=== PATIENT | female | born 1980 | race African-American/Black ===

== ENCOUNTER 2018-10-23 13:59 | Outpatient (CLI) | payer SELFPAY ==
[~2018-10-23] VITALS: Ht 168.9 cm; Wt 69.4 kg
[2018-10-23] MEDS ORDERED: PREN-93 PO (14:18)
[2018-10-23 14:30] VITALS: Ht 168.9 cm; Wt 69.4 kg
[2018-10-23 14:34] VITALS: BP 94/63; PULSE 73; RESP 16
--- NOTE | 2018-10-23 17:17 | PN ---
Triage Information Date/Time Reason for visit: nausea Weeks of Gestation 32+ /Para 2/0 Diabetes: none Hypertention: none Objective Vital Signs Date Temp Pulse Resp B/P (MAP) Pulse Ox O2 O2 Flow FiO2 Time Delivery Rate 10/23/18 98.4 73 16 94/63 (73) 100 Room Air 14:34 Heart Rate: 140's Contractions: None Results/Medications Result Diagram: 10/23/18 1528 10/23/18 1528 Results 24 hrs Laboratory Tests Test 10/23/18 14:09 10/23/18 15:28 Urine Color YELLOW Urine Clarity CLEAR Urine pH 7.0 Urine Specific [place] 1.012 Urine Ketones NEGATIVE Urine Nitrite NEGATIVE Urine Bilirubin NEGATIVE Urine Urobilinogen 1+ H Urine Leukocyte Esterase 1+ H Urine Microscopic RBC 1 Urine Microscopic WBC 1 Urine Squamous Epithelial Cells FEW Urine Bacteria FEW A Urine Mucus FEW A Urine Hemoglobin NEGATIVE Urine Glucose NEGATIVE Urine Total Protein NEGATIVE White Blood Count 9.3 Red Blood Count 3.43 L Hemoglobin 11.0 L Hematocrit 33.1 L Mean Corpuscular Volume 96.5 Mean Corpuscular Hemoglobin 32.1 Mean Corpuscular Hemoglobin Concent 33.2 Red Cell Distribution Width 12.2 Platelet Count 246 Mean Platelet Volume 10.8 H Immature Granulocytes % 0.800 H Neutrophils % 76.3 Lymphocytes % 15.3 Monocytes % 6.8 Eosinophils % 0.4 Basophils % 0.4 Nucleated Red Blood Cells % 0.0 Immature Granulocytes # 0.070 H Neutrophils # 7.1 Lymphocytes # 1.4 Monocytes # 0.6 Eosinophils # 0.0 Basophils # 0.0 Nucleated Red Blood Cells # 0.0 Sodium Level 134 L Potassium Level 3.9 Chloride Level 103 Carbon Dioxide Level 23 Anion Gap 8 Blood Urea Nitrogen 3 L Creatinine 0.54 Est Glomerular Filtrat Rate mL/min > 60 Glucose Level 71 Calcium Level 9.3 Total Bilirubin 0.1 L Direct Bilirubin 0.00 Indirect Bilirubin 0.1 Aspartate Amino Transf (AST/SGOT) 25 Alanine Aminotransferase (ALT/SGPT) 12 L Alkaline Phosphatase 111 Total Protein 7.1 Albumin 3.6 Globulin 3.50 H Albumin/Globulin Ratio 1.02 Disposition: Discharge Assessment/Plan Labs reviewed Ultrasound reviewed She doesn't feel nauseous any more Follow up appointment for the patient given to her Questions answered Precautions discussed Follow up with provider KELLEN LILLY M.D. Oct 23, 2018 17:17
--- NOTE | 2018-10-23 17:43 | TRIAGE ---
OB Triage Datetime Report Generated by CPN: 10/23/2018 17:42 Datetime: 10/23/2018 16:30 Monitor Mode: External Quality: Mild Pattern: Normal: <= 5 Contractions in 10 Minutes Resting Tone [place]: Relaxed Heart Rate FHR Baseline Rate: 140 Monitor Mode: External US FHR Baseline Changes: No Baseline Change Variability: Moderate 6-25 bpm Accelerations: 15X15 Decelerations: None Category: Category I Pain Assessment Pain Scale: 2 Pain Presence: Intermittent Pain Type: Cramping Pain Location: Abdomen; Back Pain Goal: 0 Vaginal Exam Membrane Status: Intact Datetime: 10/23/2018 15:30 Labor Evaluation Frequency: x1 Monitor Mode: External Duration (sec)2399: 60 Quality: Mild Pattern: Normal: <= 5 Contractions in 10 Minutes Resting Tone [place]: Relaxed Heart Rate FHR Baseline Rate: 140 Monitor Mode: External US FHR Baseline Changes: No Baseline Change Variability: Moderate 6-25 bpm Accelerations: 10X10 Decelerations: None Category: Category I Pain Assessment Pain Scale: 7 Pain Presence: Intermittent Pain Type: Cramping Pain Location: Abdomen; Back Pain Goal: 0 Datetime: 10/23/2018 14:39 Labor Evaluation Frequency: UTERINE IRRITABILITY NOTED Resting Tone [place]: Relaxed Heart Rate FHR Baseline Rate: 140 Monitor Mode: External US Variability: Moderate 6-25 bpm Accelerations: 10X10 Decelerations: None Category: Category I Datetime: 10/23/2018 14:14 Assessment Type: Triage Maternal Assessment Level of Consciousness: Fully Conscious DTR's/Clonus: DTRs 2+; No Clonus Headache: Denies Blurred Vision: No Respiratory Effort: Unlabored; Regular Rhythm; Equal Expansion Breath Sounds, Left: Clear and Equal Breath Sounds, Right: Clear and Equal Nausea/Vomiting: Denies RUQ Epigastric Pain: Denies Lower Extremities Edema: None Degree: None Upper Extremities Edema: None Degree: None Facial Edema: None Fall Risk Assessment History of Falling: (0) No Secondary Diagnosis: (0) No Ambulatory Aid: (0) Bedrest/Nurse Assist IV Therapy: (0) No Gait: (0) Normal/Bedrest/Immobile Mental Status: (0) Oriented to Own Ability Fall Score: 0 Fall Risk Score Definition: No Risk: No action required Datetime: 10/23/2018 14:13 EGA: 32.2 Datetime: 10/23/2018 14:11 Time of Arrival: 10/23/2018 13:43 Arrived By: Ambulatory; Wheelchair Arrived From: Home Chief Complaint: PT. HERE FOR C/O N/V AND ABD. PAIN Movement: Present Contractions: Irregular Rupture of Membranes: Denies Vaginal Bleeding: None Vaginal Discharge: Present Recent Sexual Intercouse: Denies Abdominal Trauma: Not Applicable Patient Complaints: Cramping; Back Pain; Nausea; Vomiting; Urinary Frequency; Dizziness Time Provider Notified: 10/23/2018 14:10 Provider Notified: MAXX Initial Plan: CVL/EFW/BPP/CMP/CBC/UA Datetime: 10/23/2018 14:00 Monitor Mode: External Monitor Mode: External US
== END 2018-10-23 17:12 | disposition home or self-care (01) ==
LOC: L-D 13:59 → EDBD 13:59 → OBT 13:59
PROVIDERS: ATTEND Obstetrics & Gynecology
DX: O09.523 Supervision of elderly multigravida, third trimester (principal); Z3A.32 32 weeks gestation of pregnancy
CPT/HCPCS: 76815; 76817; 76818; 80053; 81001; 85025; G0463

== ENCOUNTER 2018-11-24 15:39 | Inpatient (IN) | payer SELFPAY ==
[~2018-11-24] VITALS: Ht 170.2 cm; Wt 69.8 kg
[~2018-11-24 15:39] MED LIST: PREN-93 PO
[2018-11-24] MEDS: LACTATED RINGER'S 1,000 ML IV SCH (20:27)
[2018-11-25 00:48] VITALS: Ht 170.2 cm; Wt 69.8 kg
[2018-11-25] MEDS: LACTATED RINGER'S 1,000 ML IV SCH (02:57)
--- NOTE | 2018-11-25 03:28 | NSTRPT ---
NST Information Datetime Report Generated by CPN: 11/25/2018 03:28 Datetime: 11/24/2018 14:04 NST Information EGA: 36.6 Test Number: 3 Time on Monitor: 11/24/2018 14:31 Time off Monitor: 11/24/2018 14:58 NST Duration (Min): 27 Reason for NST: Other Reason for NST Other: Rh negative, Rh Sensitized Test and Monitor Explained: Monitor Explained; Test Explained; Verbalized Understanding Pulse: 68 Resp: 18 SBP: 94 DBP: 55 Test Evaluation NST Interventions: None Patient States Movement: Present Contraction Frequency: NONE FHR Baseline : 130 Variability: Moderate 6-25bpm Accelerations: 15X15 Decelerations: None FHR Category: Category I NST Results: Reactive Comments: To u/s. GAIL 6.1cm. CEPHALIC. Pt states she feels wet starting at night on tuesday night . she states she sleeps without underwear so she noticed wetness between her legs also in the morning yesterday and today. Electronically Signed By E-Signature: with User ID: [id number] Datetime: 11/22/2018 13:45 NST Information EGA: 36.4 Time on Monitor: 11/22/2018 14:04 Time off Monitor: 11/22/2018 14:43 NST Duration (Min): 39 Reason for NST: Other Reason for NST Other: Rh Negative, Rh sensitized Test and Monitor Explained: Monitor Explained; Test Explained; Verbalized Understanding Pulse: 75 Resp: 18 SBP: 98 DBP: 54 Test Evaluation NST Interventions: Other NST Interventions Other: REPOSITION US Patient States Movement: Present Contraction Frequency: NONE FHR Baseline : 135 Variability: Moderate 6-25bpm Accelerations: 15X15 Decelerations: None FHR Category: Category I NST Results: Reactive Comments: pt to u/s GAIL 9.2 CM CEPHALIC PT INSTRUCTED TO DRINK 8-10 GLASSES OF WATER DAILY . STATES SHE HAS NOT BEEN DRINKING MUCH FLUIDS Electronically Signed By E-Signature: with User ID: [id number] Datetime: 11/17/2018 14:33 NST Information EGA: 35.6 NST Duration (Min): 29
[2018-11-25] MEDS ORDERED: ACETAMINOPHEN 500 MG TAB PO STA (10:02)
[2018-11-25] MEDS ORDERED: SALINE 0.65% 45 ML NAS SPRAY NASAL PRN (10:30)
--- NOTE | 2018-11-25 14:02 | HP ---
Date/Time of Note Date/Time of Note DATE: 11/25/18 TIME: 13:54 OB - History Hx of Present Free Text/Dictation 37-year-old female 2 para 0 AB 1 at 36 weeks and 6 days gestation sent in from antepartum testing unit for decreased amniotic fluid Patient has history of Rh sensitization Last Menstrual Period: Mar 11, 2018 Estimated Due Date: Dec 16, 2018 : 2 Para: 0 Therapeutic : 1 Care: Limited Care Ultrasounds: Other (Third trimester ultrasound) Obstetrical Complications: Other (Rh- sensitized titers were 121 which appears to be very low) Medical Complications: None Past Family/Social History * Past Medical, Surgical, Family and Obstetric Histories reviewed from chart. Blood Type: O- Rubella: immune RPR/VDRL: Negative GBS Status: Unknown HBsAG: Negative OB Admission Exam Physical Exam HEENT: WNL Heart: Rhythm Normal Lungs: Clear, Equal Abdomen: WNL Extremities: Normal Reflexes: Normal Cervical Dilatation: None Effacement: 0% Station: -3 Membranes: Intact Heart Rate: 140's Accelerations: Accelerations Present Decelerations: No Decelerations Varibility: Moderate Contractions on Admission: None Last 72 hours Lab Results CBC & BMP 11/24/18 17:38 OB Assessment/Plan Other Assessment: Decreased amniotic fluid at 36 weeks and 6 days Rh- sensitized ROM plus test was negative Other plan: Patient was admitted for IV hydration and reevaluation of amniotic fluid the following day SYL PASTOR MD Nov 25, 2018 14:02
--- NOTE | 2018-11-25 14:03 | DS ---
Date/Time of Note Date/Time of Note DATE: 11/25/18 TIME: 14:02 Obstetrical Discharge Record Final Diagnosis Final Diagnosis: Term delivered Other Final Diagnosis Decreased amniotic fluid which was read Complications Other (Rh- sensitized) Condition on Discharge Physical Assessment Voiding: Yes Bowel Movement: Yes Breast: Soft, non-tender, Filling Fundus: Other () Abdomen and Incision: Abdomen is gravid fundal height is 33 heart tones appeared reactive Episiotomy: Not applicable Calf Tenderness: No Patient Condition: Good SYL PASTOR MD Nov 25, 2018 14:03
--- NOTE | 2018-11-25 14:05 | QN ---
Documentation Comment 37-year-old female admitted admitted with decreased amniotic fluid Amniotic fluid index equals 8.9 cm. We will DC patient home with follow-up in antepartum testing SYL PASTOR MD Nov 25, 2018 14:05
--- NOTE | 2018-11-25 14:06 | PD.PPDC ---
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
== END 2018-11-25 14:35 | disposition home or self-care (01) | DRG 833 ==
LOC: OBT 15:39 → L-D 15:39 → OBT 18:40 → L-D 18:40
PROVIDERS: ADMIT Obstetrics & Gynecology; ATTEND Obstetrics & Gynecology
DX: O41.03X0 Oligohydramnios, third trimester, not applicable or unspecified (principal); Z3A.36 36 weeks gestation of pregnancy
CPT/HCPCS: 76818; 81003; 84112; 85025; 87086; G0463; J7120

== ENCOUNTER 2018-12-03 00:52 | Outpatient (CLI) | payer MEDICAID ==
[~2018-12-03] VITALS: Ht 170.2 cm; Wt 74.1 kg
[2018-12-03 01:25] VITALS: BP 98/60; PULSE 90; RESP 18; Ht 170.2 cm; Wt 74.1 kg
[2018-12-03] MEDS ORDERED: FERR134T PO (02:22)
[2018-12-03] MEDS ORDERED: PSYL0.4C2 PO (02:22)
--- NOTE | 2018-12-03 05:40 | TRIAGE ---
OB Triage Datetime Report Generated by CPN: 12/03/2018 05:40 Datetime: 12/03/2018 04:36 Stage of : OB Triage Datetime: 12/03/2018 03:49 Heart Rate FHR Baseline Rate: 135 Monitor Mode: External US Datetime: 12/03/2018 02:23 Stage of : OB Triage Monitor Mode: External Quality: Mild Pattern: Normal: <= 5 Contractions in 10 Minutes Resting Tone [place]: Relaxed Heart Rate FHR Baseline Rate: 140 Monitor Mode: External US FHR Baseline Changes: No Baseline Change Variability: Moderate 6-25 bpm Accelerations: 15X15 Decelerations: None Category: Category I Datetime: 12/03/2018 01:50 Stage of : OB Triage Datetime: 12/03/2018 01:46 Vaginal Exam Dilatation (cms): 1.0 Effacement (%): 30 Station: -3 Exam By: TChristiano HarperHernandez Datetime: 12/03/2018 01:23 Assessment Type: Triage Maternal Assessment Level of Consciousness: Fully Conscious DTR's/Clonus: DTRs 2+; No Clonus Headache: Denies Blurred Vision: No Respiratory Effort: Unlabored; Regular Rhythm; Equal Expansion Breath Sounds, Left: Clear and Equal Breath Sounds, Right: Clear and Equal Nausea/Vomiting: Denies RUQ Epigastric Pain: Denies Facial Edema: None Fall Risk Assessment History of Falling: (0) No Secondary Diagnosis: (0) No Ambulatory Aid: (0) Bedrest/Nurse Assist IV Therapy: (0) No Gait: (0) Normal/Bedrest/Immobile Mental Status: (0) Oriented to Own Ability Fall Score: 0 Fall Risk Score Definition: No Risk: No action required Datetime: 12/03/2018 01:21 Time of Arrival: 12/03/2018 00:46 EGA: 38.1 Arrived By: Ambulatory Arrived From: Home Chief Complaint: uc's since 2199, hemmorhoids Movement: Present Contractions: Irregular Rupture of Membranes: Denies Vaginal Discharge: Denies Recent Sexual Intercouse: Denies Abdominal Trauma: Not Applicable Patient Complaints: Contractions Time Provider Notified: 12/03/2018 01:50 Provider Notified: Dr Ricks Initial Plan: EFM, VE Datetime: 12/03/2018 01:03 Labor Evaluation Frequency: NONE Monitor Mode: External Quality: Mild Pattern: Normal: <= 5 Contractions in 10 Minutes Resting Tone [place]: Relaxed Heart Rate FHR Baseline Rate: 140 Monitor Mode: External US FHR Baseline Changes: No Baseline Change Variability: Moderate 6-25 bpm Accelerations: 15X15 Decelerations: None Category: Category I Datetime: 12/03/2018 00:59 EGA: 36.6 Datetime: 11/25/2018 14:00 Labor Evaluation Frequency: 0 Monitor Mode: External Pattern: Normal: <= 5 Contractions in 10 Minutes Resting Tone [place]: Relaxed Heart Rate FHR Baseline Rate: 135 Monitor Mode: External US Variability: Moderate 6-25 bpm Accelerations: 15X15 Decelerations: None Category: Category I Datetime: 11/25/2018 13:13 Pain Assessment Pain Scale: 0 Pain Presence: None/Denies Pain Type: N/A Pain Goal: 0 Pain Assessment Comments: DENIES ANY FURTHER PAIN Datetime: 11/25/2018 13:00 Labor Evaluation Frequency: 0 Monitor Mode: External Pattern: Normal: <= 5 Contractions in 10 Minutes Resting Tone [place]: Relaxed Heart Rate FHR Baseline Rate: 135 Monitor Mode: External US Variability: Moderate 6-25 bpm Accelerations: 15X15 Decelerations: None Category: Category I Datetime: 11/25/2018 12:00 Labor Evaluation Frequency: 0 Monitor Mode: External Pattern: Normal: <= 5 Contractions in 10 Minutes Resting Tone [place]: Relaxed Heart Rate FHR Baseline Rate: 135 Monitor Mode: External US Variability: Moderate 6-25 bpm Accelerations: 15X15 Decelerations: None Category: Category I Datetime: 11/25/2018 11:24 Pain Assessment Pain Scale: 4 Pain Presence: Intermittent Pain Type: Ache Pain Location: Head Pain Goal: 0 Pain Relief Measures: Comfort Measures Pain Assessment Comments: states pain is tolerable after tylenol Datetime: 11/25/2018 11:00 Labor Evaluation Frequency: 0 Monitor Mode: External Pattern: Normal: <= 5 Contractions in 10 Minutes Resting Tone [place]: Relaxed Heart Rate FHR Baseline Rate: 135 Monitor Mode: External US Variability: Moderate 6-25 bpm Accelerations: 15X15 Decelerations: None Category: Category I Datetime: 11/25/2018 10:00 Labor Evaluation Frequency: x2 Monitor Mode: External Duration (sec)2399: 50 Quality: Mild Pattern: Normal: <= 5 Contractions in 10 Minutes Resting Tone [place]: Relaxed Contraction Comments: denies feeling Heart Rate FHR Baseline Rate: 130 Monitor Mode: External US Variability: Moderate 6-25 bpm Accelerations: 15X15 Decelerations: None Category: Category I Datetime: 11/25/2018 09:58 Pain Assessment Pain Scale: 6 Pain Presence: Constant Pain Type: Ache Pain Location: Head Pain Goal: 0 Pain Relief Measures: Comfort Measures Pain Assessment Comments: pt states she feels a h/a now with nasal congestion Datetime: 11/25/2018 09:00 Labor Evaluation Frequency: 0 Monitor Mode: External Pattern: Normal: <= 5 Contractions in 10 Minutes Resting Tone [place]: Relaxed Contraction Comments: denies any ucs Heart Rate FHR Baseline Rate: 130 Monitor Mode: External US Variability: Moderate 6-25 bpm Comments: broken tracing Datetime: 11/25/2018 08:55 Assessment Type: Ongoing Assessment Maternal Assessment Level of Consciousness: Fully Conscious DTR's/Clonus: DTRs 2+; No Clonus Headache: Denies Blurred Vision: No Respiratory Effort: Unlabored; Regular Rhythm; Equal Expansion Breath Sounds, Left: Clear and Equal Breath Sounds, Right: Clear and Equal Nausea/Vomiting: Denies RUQ Epigastric Pain: Denies Lower Extremities Edema: None Degree: None Upper Extremities Edema: None Degree: None Facial Edema: None Fall Risk Assessment History of Falling: (0) No Secondary Diagnosis: (0) No Ambulatory Aid: (0) Bedrest/Nurse Assist IV Therapy: (0) No Gait: (0) Normal/Bedrest/Immobile Mental Status: (0) Oriented to Own Ability Fall Score: 0 Fall Risk Score Definition: No Risk: No action required Datetime: 11/25/2018 08:22 Comments: loss of contact, pt sitting up for breakfast, will adjust after Datetime: 11/25/2018 08:00 Labor Evaluation Frequency: 0 Monitor Mode: External Pattern: Normal: <= 5 Contractions in 10 Minutes Resting Tone [place]: Relaxed Heart Rate FHR Baseline Rate: 130 Monitor Mode: External US Variability: Moderate 6-25 bpm Accelerations: 15X15 Decelerations: None Category: Category I Datetime: 11/25/2018 07:00 Labor Evaluation Frequency: 1/HR Monitor Mode: External Duration (sec)2399: 50 Quality: Mild Pattern: Normal: <= 5 Contractions in 10 Minutes Resting Tone [place]: Relaxed Heart Rate FHR Baseline Rate: 135 Monitor Mode: External US FHR Baseline Changes: No Baseline Change Variability: Moderate 6-25 bpm Accelerations: 15X15 Decelerations: None Category: Category I Datetime: 11/25/2018 06:01 Labor Evaluation Frequency: NONE Monitor Mode: External Pattern: Normal: <= 5 Contractions in 10 Minutes Resting Tone [place]: Relaxed Heart Rate FHR Baseline Rate: 130 Monitor Mode: External US FHR Baseline Changes: No Baseline Change Variability: Moderate 6-25 bpm Accelerations: 15X15 Decelerations: None Category: Category I Datetime: 11/25/2018 05:00 Labor Evaluation Frequency: NONE Monitor Mode: External Pattern: Normal: <= 5 Contractions in 10 Minutes Resting Tone [place]: Relaxed Heart Rate FHR Baseline Rate: 130 Monitor Mode: External US FHR Baseline Changes: No Baseline Change Variability: Moderate 6-25 bpm Accelerations: 15X15 Decelerations: None Category: Category I Datetime: 11/25/2018 04:00 Labor Evaluation Frequency: NONE Monitor Mode: External Pattern: Normal: <= 5 Contractions in 10 Minutes Resting Tone [place]: Relaxed Heart Rate FHR Baseline Rate: 135 Monitor Mode: External US FHR Baseline Changes: No Baseline Change Variability: Moderate 6-25 bpm Accelerations: 15X15 Decelerations: None Category: Category I Datetime: 11/25/2018 03:00 Labor Evaluation Frequency: NONE Monitor Mode: External Pattern: Normal: <= 5 Contractions in 10 Minutes Resting Tone [place]: Relaxed Heart Rate FHR Baseline Rate: 135 Monitor Mode: External US FHR Baseline Changes: No Baseline Change Variability: Moderate 6-25 bpm Accelerations: 15X15 Decelerations: None Category: Category I Datetime: 11/25/2018 02:00 Labor Evaluation Frequency: 1/HR Monitor Mode: External Quality: Mild Pattern: Normal: <= 5 Contractions in 10 Minutes Resting Tone [place]: Relaxed Heart Rate FHR Baseline Rate: 135 Monitor Mode: External US FHR Baseline Changes: No Baseline Change Variability: Moderate 6-25 bpm Accelerations: 15X15 Decelerations: None Category: Category I Datetime: 11/25/2018 01:00 Labor Evaluation Frequency: NONE Monitor Mode: External Pattern: Normal: <= 5 Contractions in 10 Minutes Resting Tone [place]: Relaxed Heart Rate FHR Baseline Rate: 135 Monitor Mode: External US FHR Baseline Changes: No Baseline Change Variability: Moderate 6-25 bpm Accelerations: 15X15 Decelerations: None Category: Category I Datetime: 11/25/2018 00:00 Labor Evaluation Frequency: NONE Monitor Mode: External Pattern: Normal: <= 5 Contractions in 10 Minutes Resting Tone [place]: Relaxed Heart Rate FHR Baseline Rate: 135 Monitor Mode: External US FHR Baseline Changes: No Baseline Change Variability: Moderate 6-25 bpm Accelerations: 15X15 Decelerations: None Category: Category I Datetime: 11/24/2018 23:00 Labor Evaluation Frequency: NONE Monitor Mode: External Pattern: Normal: <= 5 Contractions in 10 Minutes Resting Tone [place]: Relaxed Heart Rate FHR Baseline Rate: 135 Monitor Mode: External US FHR Baseline Changes: No Baseline Change Variability: Moderate 6-25 bpm Accelerations: 15X15 Decelerations: None Category: Category I Datetime: 11/24/2018 22:19 Assessment Type: Admission Assessment Maternal Assessment Level of Consciousness: Fully Conscious DTR's/Clonus: DTRs 2+; No Clonus Headache: Denies Blurred Vision: No Respiratory Effort: Unlabored; Regular Rhythm; Equal Expansion Breath Sounds, Left: Clear and Equal Breath Sounds, Right: Clear and Equal Nausea/Vomiting: Denies RUQ Epigastric Pain: Denies Lower Extremities Edema: None Degree: None Upper Extremities Edema: None Degree: None Facial Edema: None Fall Risk Assessment History of Falling: (0) No Secondary Diagnosis: (0) No Ambulatory Aid: (0) Bedrest/Nurse Assist Gait: (0) Normal/Bedrest/Immobile Mental Status: (0) Oriented to Own Ability Datetime: 11/24/2018 22:00 Labor Evaluation Frequency: NONE Monitor Mode: External Pattern: Normal: <= 5 Contractions in 10 Minutes Resting Tone [place]: Relaxed Heart Rate FHR Baseline Rate: 140 Monitor Mode: External US FHR Baseline Changes: No Baseline Change Variability: Moderate 6-25 bpm Accelerations: 15X15 Decelerations: None Category: Category I Datetime: 11/24/2018 21:00 Labor Evaluation Frequency: NONE Monitor Mode: External Pattern: Normal: <= 5 Contractions in 10 Minutes Resting Tone [place]: Relaxed Heart Rate FHR Baseline Rate: 140 Monitor Mode: External US FHR Baseline Changes: No Baseline Change Variability: Minimal - Undetectable to <=5 bpm Accelerations: 15X15 Decelerations: None Category: Category II Pain Presence: None/Denies Datetime: 11/24/2018 20:10 Labor Evaluation Frequency: NONE Monitor Mode: External Pattern: Normal: <= 5 Contractions in 10 Minutes Resting Tone [place]: Relaxed Heart Rate FHR Baseline Rate: 135 Monitor Mode: External US FHR Baseline Changes: No Baseline Change Variability: Moderate 6-25 bpm Accelerations: 15X15 Decelerations: None Category: Category I Datetime: 11/24/2018 19:35 Labor Evaluation Frequency: NONE Monitor Mode: External Pattern: Normal: <= 5 Contractions in 10 Minutes Resting Tone [place]: Relaxed Heart Rate FHR Baseline Rate: 135 Monitor Mode: External US FHR Baseline Changes: No Baseline Change Variability: Moderate 6-25 bpm Accelerations: 15X15 Decelerations: None Category: Category I Datetime: 11/24/2018 18:39 Stage of : OB Triage Datetime: 11/24/2018 17:59 Labor Evaluation Frequency: 0 Monitor Mode: External Pattern: Normal: <= 5 Contractions in 10 Minutes Resting Tone [place]: Relaxed Heart Rate FHR Baseline Rate: 135 Monitor Mode: External US Variability: Moderate 6-25 bpm Accelerations: 10X10 Decelerations: None Category: Category I Pain Assessment Pain Scale: 0 Pain Presence: None/Denies Pain Type: N/A Pain Goal: 3 Pain Relief Measures: Comfort Measures Datetime: 11/24/2018 17:18 Stage of : OB Triage Datetime: 11/24/2018 17:04 Stage of : OB Triage Assessment Type: Triage Maternal Assessment Level of Consciousness: Fully Conscious DTR's/Clonus: DTRs 2+; No Clonus Headache: Denies Blurred Vision: No Respiratory Effort: Unlabored; Regular Rhythm; Equal Expansion Breath Sounds, Left: Clear and Equal Breath Sounds, Right: Clear and Equal Nausea/Vomiting: Denies RUQ Epigastric Pain: Denies Facial Edema: None Temperature Route: Axillary Fall Risk Assessment History of Falling: (0) No Secondary Diagnosis: (0) No Ambulatory Aid: (0) Bedrest/Nurse Assist IV Therapy: (0) No Gait: (0) Normal/Bedrest/Immobile Mental Status: (0) Oriented to Own Ability Fall Score: 0 Fall Risk Score Definition: No Risk: No action required Labor Evaluation Frequency: 0 Monitor Mode: External Pattern: Normal: <= 5 Contractions in 10 Minutes Resting Tone [place]: Relaxed Heart Rate FHR Baseline Rate: 145 Monitor Mode: External US Variability: Moderate 6-25 bpm Accelerations: None Decelerations: None Category: Category I Pain Assessment Pain Scale: 5 Pain Presence: Intermittent Pain Type: Cramping Pain Location: Abdomen Pain Goal: 3 Pain Relief Measures: Comfort Measures Vaginal Exam Dilatation (cms): 0.5 Effacement (%): 60 Station: -2 Exam By: Janice MONROE Nitrazine: Negative Datetime: 11/24/2018 14:20 Time of Arrival: 11/24/2018 15:26 EGA: 36.6 Arrived By: Ambulatory Arrived From: Other Unit in Hospital Chief Complaint: REFERRED FROM T TO CHECK FOR LEAKING OF FLUID, WAS SEEN IN NST 3 DAYS AGO GAIL WA S 9.2 AND TODAY 6.1, DENIES BLEEDING OR UC'S Movement: Present Contractions: Occasional Rupture of Membranes: Unsure Vaginal Bleeding: None Vaginal Discharge: Present Recent Sexual Intercouse: Denies Abdominal Trauma: Not Applicable Initial Plan: MONITOR, ROM PLUS, NITRAZINE Datetime: 10/23/2018 14:14 Fall Score: 0 Fall Risk Score Definition: No Risk: No action required Datetime: 10/23/2018 14:13 EGA: 32.2
--- NOTE | 2018-12-03 06:48 | PN ---
Triage Information Date/Time Reason for visit: Hemorrhoids and constipation Weeks of Gestation Patient is a 38-year-old 1 para 0 at 38 weeks and 1 day of gestation with estimated date of delivery 2018 Patient presents with chief complaint of hemorrhoids and constipation She reports positive movement, denies uterine contraction, denies vaginal bleeding or leaking fluid /Para 1 para 0 Objective Vital Signs Date Temp Pulse Resp B/P (MAP) Pulse Ox O2 O2 Flow FiO2 Time Delivery Rate 12/03/18 98.2 90 18 98/60 (73) Room Air 01:25 Heart Rate: 140's Heart Rate Comments heart rate tracing category 1 Contractions: None Results/Medications Results 24 hrs H&H on November 24 10.3/31.3 Imaging Results PROCEDURE: US OB CLINICAL INDICATION: Contractions. labor. Assess weight. TECHNIQUE: Multiple transabdominal sonographic images of the pelvis and gravid uterus were obtained. The images were reviewed on a PACS workstation. COMPARISON: Current biophysical profile ultrasound, dictated separately; 11/25/2018 ultrasound OB biophysical profile with GAIL. FINDINGS: Cervix: Not visualized Gestation: Single viable intrauterine gestation. Cardiac activity: 136 beats per minute. Presentation: Cephalic Placenta: Location: Posterior fundal Appearance: No previa or abruption. Amniotic Fluid: GAIL = 12.8 cm Measurements: BPD = 9.34 cm, 38 weeks 0 days HC = 33.32 cm, 38 weeks to 0 days AC = 33.92 cm, 37 weeks 6 days FL = 7.36 cm, 37 weeks 5 days Gestational Age: AUA estimated gestational age: 37 weeks 6 days LMP estimated gestational age: 38 weeks 1 days AUA estimated date of delivery: 12/18/2018 The EFW = 3320 g +/- 498g (7lb 5oz +/-1lb 2oz), 55.2 %ile based on Hadlock age. Structures: Not assessed IMPRESSION: 1. Single viable intrauterine gestation of 37 weeks 6 days by ultrasound criteria, yielding estimated delivery date of 12/18/2018. 2. Estimated weight = 3320 g (55.2 %ile), as above RPTAT: [facility] Physician Kay Date Time Electronically viewed and signed by Physician Kay on 12/03/2018 03:29 RF/ CC: PROMISE TORRES MD [phone] PROCEDURE: US OB biophysical profile. CLINICAL INDICATION: Contraction. labor. TECHNIQUE: Multiple sonographic images of the pelvis were obtained. The images were reviewed on a PACS workstation. COMPARISON: US 12/03/2018; US PELVIS 11/25/2018 FINDINGS: There is a single live intrauterine gestation. There is a normal amount of amniotic fluid with an GAIL = 12.8 cm, including MVP= 4.0 cm. Cardiac activity is present with 135 beats per minute. There is a cephalic presentation. The placenta is posterior fundal. Biophysical profile reported as: movement 2/2 tone 2/2. breathing 2/2 GAIL 2/2 Total 8/8 IMPRESSION: Normal biophysical profile reported as 88 with GAIL = 12.8cm RPTAT: [facility]SA[facility] Physician Kay Date Time Electronically viewed and signed by Physician Kay on 12/03/2018 03:23 RF/ CC: PROMISE TORRES MD [phone] Disposition: Discharge Assessment/Plan Prescription for Anusol cream was given Patient was counseled regarding fiber and fluid intake She was instructed to follow-up with her own CAN TENDER in 1-2 days PROMISE TORRES MD Dec 03, 2018 06:48
--- NOTE | 2018-12-03 20:23 | NSTRPT ---
NST Information Datetime Report Generated by CPN: 12/03/2018 20:22 Datetime: 12/03/2018 00:59 NST Information EGA: 37.6 Datetime: 12/01/2018 10:45 NST Information EGA: 37.6 Test Number: 5 Time on Monitor: 12/01/2018 12:03 Time off Monitor: 12/01/2018 12:39 NST Duration (Min): 36 Reason for NST: Other Reason for NST Other: Rh negative, Rh sensitized Test and Monitor Explained: Monitor Explained; Test Explained; Verbalized Understanding Pulse: 86 Resp: 18 SBP: 104 DBP: 66 Patient States Movement: Present Contraction Frequency: none FHR Baseline : 140 Variability: Moderate 6-25bpm Accelerations: 15X15 Decelerations: None FHR Category: Category I NST Results: Reactive Comments: PT TO U/S GAIL 11.8 CM CEPHALIC Electronically Signed By E-Signature: with User ID: [id number] Datetime: 11/28/2018 13:25 NST Information EGA: 37.3 Test Number: 4 Time on Monitor: 11/28/2018 13:53 Time off Monitor: 11/28/2018 14:22 NST Duration (Min): 29 Reason for NST: Other Reason for NST Other: Rh negative, Rh sensitized Test and Monitor Explained: Monitor Explained; Test Explained; Verbalized Understanding Pulse: 73 Resp: 18 SBP: 97 DBP: 59 Test Evaluation NST Interventions: None Patient States Movement: Present Contraction Frequency: OCCASSIONAL/40-60/mild/pain level 0 FHR Baseline : 135 Variability: Moderate 6-25bpm Accelerations: 15X15 Decelerations: None FHR Category: Category I NST Results: Reactive Comments: To u/s GAIL 12.0 CM CEPHALIC Electronically Signed By E-Signature: with User ID: [id number] Datetime: 11/24/2018 14:04 NST Information EGA: 36.6 NST Duration (Min): 27 Datetime: 11/22/2018 13:45 NST Information EGA: 36.4 NST Duration (Min): 39 Datetime: 11/17/2018 14:33 NST Information EGA: 35.6 NST Duration (Min): 29
== END 2018-12-03 04:50 | disposition home or self-care (01) ==
LOC: OBT 00:52 → L-D 00:57 → OBT 04:50
PROVIDERS: ATTEND Obstetrics & Gynecology
DX: O22.43 Hemorrhoids in pregnancy, third trimester (principal); Z3A.38 38 weeks gestation of pregnancy
CPT/HCPCS: 76815; 76818; Z7500; G0463

== ENCOUNTER 2018-12-04 09:19 | Inpatient (IN) | payer MEDICAID ==
[~2018-12-04] VITALS: Ht 170.2 cm; Wt 73.5 kg
[~2018-12-04 09:19] MED LIST changes: +FERR134T PO; +PSYL0.4C2 PO
[2018-12-04 09:28] VITALS: Ht 170.2 cm; Wt 73.5 kg
[2018-12-04] MEDS ORDERED: LACTATED RINGER'S 1,000 ML IV ONE (10:00)
[2018-12-04] MEDS ORDERED: morphine 10 MG INJ IM ONE ×2 (10:30→20:30)
[2018-12-04] MEDS ORDERED: LACTATED RINGER'S 1,000 ML IV SCH ×2 (15:00→17:21)
--- NOTE | 2018-12-04 16:54 | HP ---
Date/Time of Note Date/Time of Note DATE: 12/04/18 TIME: 16:50 OB - History Hx of Present Free Text/Dictation 38-year-old female 2 para 0 AB 1 at 38 weeks gestation admitted complaining of uterine contractions started a few hours prior to admission Denies rupture of membrane no vaginal bleeding Chief Complaint: Labor contractions Last Menstrual Period: Mar 11, 2018 Estimated Due Date: Dec 16, 2018 : 2 Para: 0 Therapeutic : 1 Care: Limited Care Past Family/Social History * Past Medical, Surgical, Family and Obstetric Histories reviewed from chart. Blood Type: O- (Patient has positive anti-D immunization) Rubella: immune RPR/VDRL: Negative GBS Status: Unknown HBsAG: Negative OB Admission Exam Physical Exam HEENT: WNL Heart: Rhythm Normal Lungs: Clear, Equal Abdomen: WNL Extremities: Normal Reflexes: Normal Cervical Dilatation: 1cm Effacement: 25% Station: -3 Membranes: Intact Heart Rate: 140's Accelerations: Accelerations Present Decelerations: No Decelerations Varibility: Marked Contractions on Admission: 6-10 Minutes Apart Date/Time Contractions Began: 12/04/2018 in a.m. Frequency of Contractions: Every 5-10 minutes Duration: Over 60 seconds Intensity: Firm (Patient complaining of strong uterine contraction which has caused her serious discomfort) OB Assessment/Plan Other Assessment: Term gestation in labor contractions Other plan: Pain medication was offered to patient which was refused We will continue to observe in-house until contractions subside or patient falls in labor SYL PASTOR MD Dec 04, 2018 16:54
[2018-12-04] MEDS ORDERED: ACETAMINOPHEN 325 MG TAB PO PRN (17:30)
[2018-12-04] MEDS ORDERED: AL HYDROX/MG HYDROX/SIMETH 30 ML CUP PO PRN (17:30)
--- NOTE | 2018-12-04 17:57 | TRIAGE ---
OB Triage Datetime Report Generated by CPN: 12/04/2018 17:57 Datetime: 12/04/2018 17:00 Frequency: OCC Monitor Mode: External Quality: Mild Pattern: Normal: <= 5 Contractions in 10 Minutes Resting Tone [place]: Relaxed FHR Baseline Rate: 135 Monitor Mode: External US FHR Baseline Changes: No Baseline Change Variability: Moderate 6-25 bpm Accelerations: 15X15 Decelerations: None Category: Category I Pain Scale: 8 Pain Goal: 0 Datetime: 12/04/2018 16:00 Frequency: 7-10 Monitor Mode: External Duration (sec)2399: 50-90 Quality: Mild Pattern: Normal: <= 5 Contractions in 10 Minutes Resting Tone [place]: Relaxed FHR Baseline Rate: 135 Monitor Mode: External US FHR Baseline Changes: No Baseline Change Variability: Moderate 6-25 bpm Accelerations: 15X15 Decelerations: None Category: Category I Pain Scale: 8 Pain Presence: Intermittent Pain Type: Contraction Pain Location: Abdomen; Back Pain Goal: 0 Pain Relief Measures: Comfort Measures Datetime: 12/04/2018 15:00 Frequency: 5-10 Monitor Mode: External Duration (sec)2399: 50-100 Quality: Mild Pattern: Normal: <= 5 Contractions in 10 Minutes Resting Tone [place]: Relaxed FHR Baseline Rate: 150 Monitor Mode: External US FHR Baseline Changes: No Baseline Change Variability: Moderate 6-25 bpm Accelerations: 15X15 Decelerations: None Category: Category I Pain Scale: 8 Pain Presence: Intermittent Pain Type: Contraction Pain Location: Abdomen; Back Pain Goal: 3 Pain Relief Measures: Comfort Measures Datetime: 12/04/2018 14:00 Frequency: 8-10 Monitor Mode: External Duration (sec)2399: 50-90 Quality: Moderate Pattern: Normal: <= 5 Contractions in 10 Minutes Resting Tone [place]: Relaxed FHR Baseline Rate: 135 Monitor Mode: External US FHR Baseline Changes: No Baseline Change Variability: Moderate 6-25 bpm Accelerations: 15X15 Decelerations: None Category: Category I Pain Scale: 8 Pain Presence: Intermittent Pain Type: Contraction Pain Location: Abdomen; Back Pain Goal: 5 Pain Relief Measures: Comfort Measures Datetime: 12/04/2018 13:00 Frequency: 8-10 Monitor Mode: External Duration (sec)2399: 60-80 Quality: Mild Pattern: Normal: <= 5 Contractions in 10 Minutes Resting Tone [place]: Relaxed FHR Baseline Rate: 135 Monitor Mode: External US FHR Baseline Changes: No Baseline Change Variability: Moderate 6-25 bpm Accelerations: 15X15 Decelerations: None Category: Category I Pain Scale: 8 Pain Presence: Intermittent Pain Type: Contraction Pain Location: Abdomen; Back Pain Goal: 4 Pain Relief Measures: Comfort Measures Datetime: 12/04/2018 12:00 Frequency: 7-10 Monitor Mode: External Duration (sec)2399: 60-80 Quality: Mild Pattern: Normal: <= 5 Contractions in 10 Minutes Resting Tone [place]: Relaxed FHR Baseline Rate: 140 Monitor Mode: External US FHR Baseline Changes: No Baseline Change Variability: Moderate 6-25 bpm Accelerations: 15X15 Decelerations: None Category: Category I Pain Scale: 8 Pain Presence: Intermittent Pain Type: Contraction Pain Location: Abdomen; Back Pain Goal: 5 Pain Relief Measures: Comfort Measures Datetime: 12/04/2018 11:37 Dilatation (cms): 1.0 Effacement (%): 60 Station: -2 Exam By: TM Datetime: 12/04/2018 11:00 Frequency: 7-10 Monitor Mode: External Duration (sec)2398: 6080 Quality: Mild Pattern: Normal: <= 5 Contractions in 10 Minutes Resting Tone [place]: Relaxed FHR Baseline Rate: 135 Monitor Mode: External US FHR Baseline Changes: No Baseline Change Variability: Moderate 6-25 bpm Accelerations: 15X15 Decelerations: None Category: Category I Pain Scale: 8 Pain Presence: Intermittent Pain Type: Contraction Pain Location: Abdomen; Back Pain Goal: 5 Pain Relief Measures: Comfort Measures Datetime: 12/04/2018 10:00 Frequency: 3-6 Monitor Mode: External Duration (sec)2399: 50-80 Quality: Mild Pattern: Normal: <= 5 Contractions in 10 Minutes Resting Tone [place]: Relaxed FHR Baseline Rate: 135 Monitor Mode: External US FHR Baseline Changes: No Baseline Change Variability: Minimal - Undetectable to <=5 bpm Accelerations: 15X15 Decelerations: None Category: Category II Pain Scale: 8 Pain Presence: Intermittent Pain Type: Contraction Pain Location: Abdomen; Back Pain Goal: 4 Pain Relief Measures: Comfort Measures Datetime: 12/04/2018 09:30 Assessment Type: Triage Level of Consciousness: Fully Conscious DTR's/Clonus: DTRs 2+; No Clonus Headache: Denies Blurred Vision: No Respiratory Effort: Unlabored; Regular Rhythm; Equal Expansion Breath Sounds, Left: Clear and Equal Breath Sounds, Right: Clear and Equal Nausea/Vomiting: Denies RUQ Epigastric Pain: Denies Lower Extremities Edema: None Degree: None Upper Extremities Edema: None Degree: None Facial Edema: None History of Falling: (0) No Secondary Diagnosis: (0) No Ambulatory Aid: (0) Bedrest/Nurse Assist IV Therapy: (0) No Gait: (0) Normal/Bedrest/Immobile Mental Status: (0) Oriented to Own Ability Fall Score: 0 Fall Risk Score Definition: No Risk: No action required Datetime: 12/04/2018 09:24 Dilatation (cms): 1.0 Effacement (%): 60 Station: -2 Exam By: TM Membrane Status: Intact Datetime: 12/04/2018 09:20 Time of Arrival: 12/04/2018 09:17 EGA: 38.2 Arrived By: Ambulatory Arrived From: Home Chief Complaint: UC since 0400 pain 8/10 Movement: Present Contractions: Regular Rupture of Membranes: Denies Vaginal Bleeding: Normal Show Vaginal Discharge: Denies Recent Sexual Intercouse: Denies Abdominal Trauma: Not Applicable Patient Complaints: Contractions Time Provider Notified: 12/04/2018 09:35 Provider Notified: Andrew Initial Plan: NST, VE
[2018-12-04] MEDS ORDERED: LIDOCAINE 1% (MPF) 30 ML INJ INJ PRN (23:30)
[2018-12-04] MEDS ORDERED: CARBOPROST 250 MCG INJ IM PRN (23:30)
[2018-12-04] MEDS ORDERED: OXYTOCIN 30 UNITS/LR 500 ML IV PRN (23:30)
[2018-12-04] MEDS ORDERED: BUTORPHANOL 2 MG INJ IV PRN (23:30)
[2018-12-04] MEDS ORDERED: AMPICILLIN 2 GM/NS (PMX) 100 ML IV ONE (23:30)
[2018-12-04] MEDS ORDERED: MISOPROSTOL 200 MCG TAB PR PRN (23:30)
[2018-12-04] MEDS ORDERED: METHYLERGONOVINE 0.2 MG INJ IM PRN (23:30)
[2018-12-04] MEDS ORDERED: OXYTOCIN 30 UNITS/LR 500 ML IV SCH ×2 (23:30)
[2018-12-04] MEDS: LACTATED RINGER'S 1,000 ML IV SCH (23:47)
[2018-12-05] MEDS: LACTATED RINGER'S 1,000 ML IV SCH ×4 (00:56→22:05)
[2018-12-05] MEDS ORDERED: FENTAnyl 2MCG/ML-ROPIV 0.2% 100 ML ONE (01:02)
--- NOTE | 2018-12-05 01:34 | PREAC ---
Date/Time of Note Date/Time of Note DATE: 12/05/18 TIME: :33 Anesthesia Eval and Record Evaluation Time Pre-Procedure Interview DATE: 12/05/18 TIME: :33 Age 38 Sex female NPO: 8 hrs Preoperative diagnosis Labor Pain Planned procedure Labor Epidural Past Medical History Past Medical History: Includes Heme: Anemia : : (1), Para: (0), Gestational age: (38) Surgery & Anesthesia Issues No known issue Meds Anticoagulation: No Beta Dionisio within 24 hr: No Reason Beta Dionisio not given: Pt. not on B-Dionisio Reported Medications Psyllium Husk (Metamucil) 0.4 Gm Capsule, 0.4 GM PO DAILY, CAP 12/03/18 Ferrous Sulfate (Iron) 134 Mg Tablet, 134 MG PO DAILY, TAB 12/03/18 Vit No.124/Iron/FA ( Vitamin Tablet) 1 Each Tablet, 1 EACH PO DAILY, TAB 10/23/18 Current Medications Acetaminophen (Tylenol Tab) 650 mg Q4H PRN PO .PAIN OR TEMP; Start 12/04/18 at 17:30 Lactated Ringer's 1,000 ml @ 125 mls/hr Q8H IV Last administered on 12/05/18at 00:56; Admin Dose 125 MLS/HR; Start 12/04/18 at 23:10 Butorphanol Tartrate (Stadol) 2 mg Q2H PRN IV .PAIN; Start 12/04/18 at 23:30 Lidocaine (Xylocaine 1% (Mpf)) 30 ml ONCE PRN INJ .EPISIOTOMY; Start 12/04/18 at 23:30 Oxytocin/Lactated Ringer's 500 ml @ 500 mls/hr ONCE POST IV ; Start 12/04/18 at 23:30 Oxytocin/Lactated Ringer's 500 ml @ 125 mls/hr POST IV ; Start 12/04/18 at 23:30 Oxytocin/Lactated Ringer's 500 ml @ 0 mls/hr ONCE PRN IV .VAGINAL BLEEDING; Start 12/04/18 at 23:30 Methylergonovine Maleate (Methergine) 0.2 mg ONCE PRN IM .VAGINAL BLEEDING; Start 12/04/18 at 23:30 Carboprost Tromethamine (Hemabate) 250 mcg ONCE PRN IM .VAGINAL BLEEDING; Start 12/04/18 at 23:30 Misoprostol (Cytotec) 1,000 mcg ONCE PRN FL .VAGINAL BLEEDING; Start 12/04/18 at 23:30 Meds reviewed: Yes Allergies Coded Allergies: No Known Allergy (Unverified , 12/03/18) Allergies Reviewed: Yes Labs/Studies Labs Reviewed: Reviewed by anesthesiologist Result Diagram: 12/05/18 0019 Laboratory Tests 12/05/18 00:19 Blood Bank Test 12/05/18 00:19 Blood Type O NEGATIVE Rh Immune Globulin Candidate YES test: Positive Studies: ECG (n/a), CXR (n/a) Pre-procedure Exam Airway: Adequate mouth opening, Adequate thyromental dist Mallampati: Mallampati II Teeth: Normal Lung: Normal Heart: Normal ASA Physical Status ASA physical status: 2 Emergency: None Planned Anesthetic Neuraxial: Epidural Planned Pain Management Epidural Pre-operative Attestations Prior to commencing anesthesia and surgery, the patient was re-evaluated, there was verification of: *The patient's identity *The results of appropriate recent lab work and preoperative vital signs *The above evaluation not changing prior to induction *Anesthetic plan, risk benefits, alternative and complications discussed with patient/family; questions answered; patient/family understands, accepts and wishes to proceed. ANAND OLVERA MD Dec 05, 2018 01:34
--- NOTE | 2018-12-05 01:35 | PAC ---
Date/Time of Note Date/Time of Note DATE: 12/05/18 TIME: 01:35 Post-Anesthesia Notes Post-Anesthesia Note Last documented vital signs T:98.1 Activity: WNL Respiratory function: WNL Cardiovascular function: WNL Mental status: Baseline Pain reasonably controlled: Yes Hydration appropriate: Yes Nausea/Vomiting absent: Yes ANAND OLVERA MD Dec 05, 2018 01:35
[2018-12-05] MEDS ORDERED: NALOXONE (0.4 MG/ML) INJ IV PRN (02:00)
[2018-12-05] MEDS ORDERED: AMPICILLIN 1 GM/NS (PMX) 50 ML IV SCH (03:30)
[2018-12-05] MEDS ORDERED: PRENATAL VITAMIN PO SCH (09:00)
[2018-12-05] MEDS: FENTAnyl 2MCG/ML-ROPIV 0.2% 100 ML BAG EPI SCH ×2 (10:04→19:44)
[2018-12-05] MEDS ORDERED: ACETAMINOPHEN 500 MG TAB PO STA ×2 (11:08→19:30)
[2018-12-05] MEDS ORDERED: OXYTOCIN 30 UNITS/LR 500 ML IV SCH (15:30)
--- NOTE | 2018-12-05 17:09 | PN ---
Date/Time of Note Date/Time of Note DATE: 12/05/18 TIME: 17:08 OB Subjective Subjective Subjective Currently patient has epidural and does not feel contractions OB Objective Objective Objective Cervix is completely effaced 4 cm dilated Membranes were ruptured amniotic fluid appeared to be clear OB Assessment/Plan Other Assessment: Term gestation labor pain Other plan: Possibly start Pitocin augmentation of labor SYL PASTOR MD Dec 05, 2018 17:09
[2018-12-06] MEDS: LACTATED RINGER'S 1,000 ML IV SCH (01:54)
[2018-12-06] MEDS ORDERED: AMPICILLIN 2 GM/NS (PMX) 100 ML ONE (02:08)
[2018-12-06] MEDS ORDERED: AMPICILLIN 2 GM/NS (PMX) 100 ML IVPB ONE (02:30)
[2018-12-06] MEDS ORDERED: GENTAMICIN 120 MG/NS (PMX) 100 ML IVPB SCH (02:30)
--- NOTE | 2018-12-06 04:15 | LDN ---
Date/Time of Note Date/Time of Note DATE: 12/06/18 TIME: 04:12 Delivery Summary Weeks of Gestation 38+ weeks Placenta Delivered: Spontaneously Meconium: none Episiotomy: No Laceration repair: Second degree perimeal laceration repaired with 3-0 Vicryl. Anesthesia type: Epidural Estimated blood loss: 200 Sponge & Needle done & correct: Yes All needle counts correct: Yes Any foreign bodies felt in the: No Delivery Information Sex Infant Sex: male Apgars 1 Minute: 8 5 Minute: 9 Suctioning Nose & mouth suctioned at anna: No Delee suction performed: No Umbilical Cord Umbilical cord with: 3 Vessels Cord presentations: no nuchal cord Cord Blood was obtained: Yes Mother & Baby Disposition Disposition Mom & Baby to Maternity; Good: Yes ADAN ANGUIANO MD Dec 06, 2018 04:15
[2018-12-06] MEDS ORDERED: ACETAMINOPHEN 650 MG SUPP PR PRN (04:30)
[2018-12-06] MEDS ORDERED: IBUPROFEN 600 MG TAB PO ONE (05:30)
[2018-12-06] MEDS: LACTATED RINGER'S 1,000 ML IV* SCH ×3 (05:45→21:45)
[2018-12-06 05:46] VITALS: BP 104/59; RESP 18
[2018-12-06] MEDS: IBUPROFEN 600 MG TAB PO SCH ×4 (06:00→23:32)
[2018-12-06] MEDS ORDERED: MISOPROSTOL 200 MCG TAB PR PRN (06:00)
[2018-12-06] MEDS ORDERED: ACETAMINOPHEN 325 MG TAB PO PRN (06:00)
[2018-12-06] MEDS ORDERED: DIBUCAINE 1% 30 GM OINT TOP PRN (06:00)
[2018-12-06] MEDS ORDERED: CARBOPROST 250 MCG INJ IM PRN (06:00)
[2018-12-06] MEDS ORDERED: HYDROCODONE/APAP (5/325) TAB PO PRN (06:00)
[2018-12-06] MEDS ORDERED: OXYTOCIN 30 UNITS/LR 500 ML IV PRN (06:00)
[2018-12-06] MEDS ORDERED: METHYLERGONOVINE 0.2 MG INJ IM PRN (06:00)
[2018-12-06] MEDS: AMPICILLIN/SULB 3 GM/NS (PMX) 100 ML IVPB SCH ×4 (06:38→23:32)
[2018-12-06] MEDS: BENZOCAINE 20% 56 ML SPRAY TOP PRN (06:48)
[2018-12-06] MEDS: WITCH HAZEL/GLYCERIN PAD PR PRN (06:48)
[2018-12-06 08:00] VITALS: BP 97/58; PULSE 70; RESP 18
[2018-12-06] MEDS: SENNA/DOCUSATE NA (8.6MG/50MG) TAB PO SCH ×2 (10:31→20:55)
[2018-12-06 11:33] VITALS: BP 86/56; PULSE 76; RESP 18
[2018-12-06 15:59] VITALS: BP 85/57; PULSE 85; RESP 18
[2018-12-06 20:00] VITALS: BP 86/50; PULSE 80; RESP 20
[2018-12-07 03:45] VITALS: BP 107/62; PULSE 78; RESP 20
[2018-12-07] MEDS: AMPICILLIN/SULB 3 GM/NS (PMX) 100 ML IVPB SCH ×3 (05:21→17:53)
[2018-12-07] MEDS: IBUPROFEN 600 MG TAB PO SCH ×3 (05:21→17:53)
[2018-12-07] MEDS: LACTATED RINGER'S 1,000 ML IV* SCH ×2 (05:45→13:00)
[2018-12-07 09:48] VITALS: BP 105/70; PULSE 59; RESP 14
[2018-12-07] MEDS: SENNA/DOCUSATE NA (8.6MG/50MG) TAB PO SCH ×2 (10:41→20:50)
--- NOTE | 2018-12-07 14:25 | PN ---
Date/Time of Note Date/Time of Note DATE: 12/07/18 TIME: 14:24 Assessment/Plan VTE Prophylaxis Risk score (from Ns)>0 risk: 1 [place] [facility]CD contraindicated: low risk/ambulating Pharmacological prophylaxis: NA/contraindicated Pharm contraindication: low risk/ambulating Lines/Catheters IV C[facility]ter Type [facility]from [facility]): Peripheral IV Assessment/Plan Assessment/Plan Status post vaginal delivery with fever We will continue IV antibiotics Repeat CBC following day Result Diagram: 12/07/18 0742 Results 24hrs Laboratory Tests Test 12/07/18 07:42 White Blood Count 18.2 H Red Blood Count 2.68 L Hemoglobin 8.5 L Hematocrit 25.8 L Mean Corpuscular Volume 96.3 Mean Corpuscular Hemoglobin 31.7 Mean Corpuscular Hemoglobin Concent 32.9 Red Cell Distribution Width 12.8 Platelet Count 171 Mean Platelet Volume 11.4 H Immature Granulocytes % 0.800 H Neutrophils % 83.3 H Lymphocytes % 8.6 L Monocytes % 6.1 Eosinophils % 0.9 Basophils % 0.3 Nucleated Red Blood Cells % 0.0 Immature Granulocytes # 0.150 H Neutrophils # 15.1 H Lymphocytes # 1.6 Monocytes # 1.1 H Eosinophils # 0.2 Basophils # 0.1 Nucleated Red Blood Cells # 0.0 Subjective 24 Hr Interval Summary Free Text/Dictation Status post vaginal delivery currently does not have major complaints Constitutional: no complaints, improved Eyes: no complaints ENT: no complaints Respiratory: no complaints Cardiovascular: no complaints Gastrointestinal: no complaints Genitourinary: no complaints Musculoskeletal: no complaints Skin: no complaints Neurologic: no complaints Endocrine: no complaints Lymphatic: no complaints Psychological: no complaints, nl mood/affect Immunologic: no complaints Exam/Review of Systems Exam Vitals Vital Signs Date Temp Pulse Resp B/P (MAP) Pulse Ox O2 O2 Flow FiO2 Time Delivery Rate 12/07/18 98.0 59 14 105/70 Room Air 09:48 (82) Intake and Output 12/06/18 12/06/18 12/07/18 1515:00 23:00 07:00 IntakeIntake Total 700 ml 725 ml 100 ml OutputOutput Total 650 ml BalanceBalance 50 ml 725 ml 100 ml Exam Fundus is firm appears a slightly tender Constitutional: alert, oriented, well developed Psych: no complaints, nl mood/affect Head: normocephalic, atraumatic Eyes: nl conjunctiva, EOMI, nl lids, nl sclera, PERRL ENMT: nl external ears & nose, nl lips & teeth, nl nasal mucosa & septum Neck: supple, non-tender Respiratory: clear to auscultation, normal air movement Cardiovascular: regular rate and rhythm, nl pulses Gastrointestinal: soft, nl liver, spleen, non-tender Genitourinary - Female: other (Perineum appears to be healing well and is clean) Musculoskeletal: nl extremities to inspection, nl gait and stance Extremities: normal pulses Neurological: CIDER MAKER II-XII intact, nl mental status, nl speech, nl strength Skin: nl turgor; No rash or lesions Lymph: nl lymph nodes Results Results 24hrs Laboratory Tests Test 12/07/18 07:42 White Blood Count 18.2 H Red Blood Count 2.68 L Hemoglobin 8.5 L Hematocrit 25.8 L Mean Corpuscular Volume 96.3 Mean Corpuscular Hemoglobin 31.7 Mean Corpuscular Hemoglobin Concent 32.9 Red Cell Distribution Width 12.8 Platelet Count 171 Mean Platelet Volume 11.4 H Immature Granulocytes % 0.800 H Neutrophils % 83.3 H Lymphocytes % 8.6 L Monocytes % 6.1 Eosinophils % 0.9 Basophils % 0.3 Nucleated Red Blood Cells % 0.0 Immature Granulocytes # 0.150 H Neutrophils # 15.1 H Lymphocytes # 1.6 Monocytes # 1.1 H Eosinophils # 0.2 Basophils # 0.1 Nucleated Red Blood Cells # 0.0 Medications Medication Current Medications Lactated Ringer's 1,000 ml @ 125 mls/hr Q8H IV* Last administered on 12/06/18at 13:13; Admin Dose 125 MLS/HR; Start 12/06/18 at 05:45 Ibuprofen (Motrin) 600 mg Q6 PO Last administered on 12/07/18at 12:12; Admin Dose 600 MG; Start 12/06/18 at 06:00 Acetaminophen (Tylenol Tab) 650 mg Q4H PRN PO .PAIN 1-5 Last administered on 12/06/18at 15:59; Admin Dose 650 MG; Start 12/06/18 at 06:00 Acetaminophen/ Hydrocodone Bitart (Williams (5/325)) 1 tab Q4H PRN PO .PAIN 1-5; Start 12/06/18 at 06:00 Senna/Docusate Sodium (Senokot-S) 1 tab BID PO Last administered on 12/07/18at 10:41; Admin Dose 1 TAB; Start 12/06/18 at 09:00 [place]/ Glycerin (Tucks Pads) 1 pad BEDSIDE MEDICATION PRN FL .HEMORRHOID/EPISIOTOMY PAIN Last administered on 12/06/18at 06:48; Admin Dose 40 PAD; Start 12/06/18 at 06:00 Benzocaine (Dermoplast [place]) 1 spray BEDSIDE MEDICATION PRN TOP .HEMMORHOID/EPISIOTOMY PAIN Last administered on 12/06/18at 06:48; Admin Dose 56 SPRAY; Start 12/06/18 at 06:00 Dibucaine (Nupercainal) 1 applic BEDSIDE MEDICATION PRN TOP .HEMMORHOID/EPISIOTOMY; Start 12/06/18 at 06:00 Diphtheria/ Tetanus/Acell Pertussis (Adacel) 0.5 ml ONCE ONCE IM* ; Start 12/08/18 at 09:00; Stop 12/08/18 at 09:01 Oxytocin/Lactated Ringer's 500 ml @ 0 mls/hr ONCE PRN IV .VAGINAL BLEEDING; Start 12/06/18 at 06:00 Methylergonovine Maleate (Methergine) 0.2 mg ONCE PRN IM .VAGINAL BLEEDING; Start 12/06/18 at 06:00 Carboprost Tromethamine (Hemabate) 250 mcg ONCE PRN IM .VAGINAL BLEEDING; Start 12/06/18 at 06:00 Misoprostol (Cytotec) 1,000 mcg ONCE PRN FL .VAGINAL BLEEDING; Start 12/06/18 at 06:00 Ampicillin Sodium/ Sulbactam Sodium 100 ml @ 100 mls/hr Q6 IVPB Last administered on 12/07/18at 13:00; Admin Dose 100 MLS/HR; Start 12/06/18 at 06:00 SYL PASTOR MD Dec 07, 2018 14:25
[2018-12-07 16:08] VITALS: BP 100/62; PULSE 82; RESP 17
[2018-12-07] MEDS: BENZOCAINE 20% 56 ML SPRAY TOP PRN (19:34)
[2018-12-07] MEDS: CIPROFLOXACIN 500 MG TAB PO SCH (19:34)
[2018-12-07 20:15] VITALS: BP 103/68; PULSE 67; RESP 18
[2018-12-07] MEDS: WITCH HAZEL/GLYCERIN PAD PR PRN (20:50)
[2018-12-08] MEDS: IBUPROFEN 600 MG TAB PO SCH ×4 (00:25→18:17)
[2018-12-08] MEDS: LACTATED RINGER'S 1,000 ML IV* SCH ×3 (01:27→12:26)
[2018-12-08 05:04] VITALS: BP 98/53; PULSE 55; RESP 18
[2018-12-08] MEDS: CIPROFLOXACIN 500 MG TAB PO SCH ×2 (06:14→18:17)
[2018-12-08 08:00] VITALS: BP 106/62; PULSE 97; RESP 18
[2018-12-08] MEDS ORDERED: DIPHTH/TET/ACEL PERTUSS (ADULT) 0.5 ML VIAL IM* ONE (09:00)
[2018-12-08] MEDS: SENNA/DOCUSATE NA (8.6MG/50MG) TAB PO SCH (09:03)
--- NOTE | 2018-12-08 14:17 | DS ---
Date/Time of Note Date/Time of Note DATE: 12/08/18 TIME: 14:16 Obstetrical Discharge Record Final Diagnosis Final Diagnosis: Term delivered Other Final Diagnosis Status post vaginal delivery Vaginal Delivery Obstetrical Delivery: Spontaneous Condition on Discharge Physical Assessment Last Vitals: See nurse's notes Voiding: Yes Bowel Movement: Yes Breast: Soft, non-tender, Filling Fundus: Firm Abdomen and Incision: Abdomen is soft with present bowel sounds Fundus is firm Episiotomy: Perineum is healing well and appears clean Calf Tenderness: No Patient Condition: Good SYL PASTOR MD Dec 08, 2018 14:17
--- NOTE | 2018-12-08 14:18 | PD.PPDC ---
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 Provider Information Physician Information 38-year-old female had vaginal delivery Diagnosis [id number] Final Diagnosis: Ofxgy0d Status post vaginal delivery Condition [id number] Patient Condition: [id number] Good Diet [id number] Diet: Xyboj7s Resume Regular Diet Activity/Restrictions [id number] Activity: [id number] Normal Activity May Shower [id number] Restrictions: Ivrov0b Nothing in the Vagina [id number] Return to Work or School: [id number] Jan 22, 2019 Follow-up Follow-up with Physician: 2, 4, Week/Weeks Return to clinic for [id number] OB Instructions: [id number] Breast Tenderness Depression Comment: Pelvic rest times 6 weeks SYL PASTOR MD Dec 08, 2018 14:18
[2018-12-08] MEDS ORDERED: IBUP-1542 PO (14:19)
[2018-12-08] MEDS ORDERED: CIPR500T4 PO (14:20)
[2018-12-08 15:45] VITALS: BP 102/66; PULSE 59; RESP 18
== END 2018-12-08 19:01 | disposition home or self-care (01) | DRG 807 ==
LOC: OBT 09:19 → L-D 09:20 → OBT 16:40 → PP1 18:12 → L-D 22:43 → PP1 12-06 05:48
PROVIDERS: ADMIT Obstetrics & Gynecology; ATTEND Obstetrics & Gynecology
PROC: 10E0XZZ Delivery of Products of Conception, External Approach (ICD-10-PCS; principal; 2018-12-06)
PROC: 0KQM0ZZ Repair Perineum Muscle, Open Approach (ICD-10-PCS; 2018-12-06)
DX: O70.1 Second degree perineal laceration during delivery (principal); Z37.0 Single live birth; Z3A.38 38 weeks gestation of pregnancy
CPT/HCPCS: 62319; 76818; 83605; 85025; 85610; 85730; 86592; 86850; 86870; 86885; 86900; 86901; 87040; 87070; 87086; 87340; 88307; 96360; 96361; 99464; G0463; J0290; J0295; J0595; J1580; J2270; J2590; J2790; J3010; J7120